=== PATIENT | female | born 1940 | race Caucasian/White ===

== ENCOUNTER → 2020-02-22 12:50 | Outpatient (CLI) | payer MEDICARE, SELFPAY ==
[2020-01-10 11:18] VITALS: BMI 32.8
--- NOTE | 2020-02-22 12:53 | ECHOD_ITS ---
Reason For Study: MURMUR Procedure This was a 2D Doppler, Color Flow transthoracic echocardiogram. Exam performed in department. Left Ventricle Normal LV size. Left ventricular systolic function is normal. The estimated ejection fraction is 55 %. There is evidence of diastolic dysfunction. No regional wall motion abnormalities noted. Right Ventricle Normal RV size. Normal systolic function. Atria The left atrium is mildly enlarged. Normal right atrium. No doppler evidence for ASD. Mitral Valve There is mild to moderate mitral annular calcification. Extension of the mitral annular calcification onto the mitral valve leaflets. The mitral valve chordae are thickened and/or calcified. Trivial mitral valve insufficiency. Tricuspid Valve Normal tricuspid valve. Mild tricuspid valve insufficiency. Right ventricular systolic pressure estimated to be 37 mmHg. Aortic Valve Trisinus/trileaflet aortic valve. Mild focal aortic valve calcification. Mild (1+) aortic valve insufficiency. Pulmonic Valve The pulmonic valve is not well visualized. Trivial pulmonic valve insufficiency. Great Vessels Mildly dilated aortic root. Pericardium/Pleural No pericardial effusion. MMode/2D Measurements & Calculations LVIDd: 4.9 cm IVSd: 0.89 cm LVOT diam: 2.1 cm LVIDs: 3.5 cm LVPWd: 1.0 cm LVOT area: 3.3 cm2 RVDd: 3.2 cm FS: 28.0 % Ao root diam: 4.2 cm LAV(MOD-bp): 82.3 ml LA A4 area: 25.1 cm2 LAV(MOD-bp) Indexed: 42.9 ml/m2 LAV(MOD-sp2): 80.8 ml LAV(MOD-sp4): 80.2 ml LA dimension(2D): 3.3 cm RA A4 area: 19.0 cm2 Time Measurements MV dec time: 0.27 sec Doppler Measurements & Calculations MV E max willem: 98.6 cm/sec Lat Peak E' Willem: 5.3 cm/sec Med Peak E' Willem: 5.1 cm/sec MV A max willem: 116.3 cm/sec E/E' lat: 18.5 E/E' med: 19.4 MV E/A: 0.85 Ao V2 max: 126.3 cm/sec AI max willem: 454.3 cm/sec LV V1 max: 93.3 cm/sec Ao max P.4 mmHg AI max P.6 mmHg LV V1 max P.5 mmHg Ao V2 mean: 92.9 cm/sec AI dec slope: 275.1 cm/sec2 LV V1 mean P.9 mmHg Ao mean P.8 mmHg AI P1/2t: 483.8 msec LV V1 mean: 67.2 cm/sec Ao V2 VTI: 34.8 cm LV V1 VTI: 24.8 cm GREGORIA(I,D): 2.4 cm2 GREGORIA(V,D): 2.5 cm2 SV(LVOT): 82.3 ml PA V2 max: 91.6 cm/sec TR max willem: 289.9 cm/sec TR max P.6 mmHg Interpretation Summary Left ventricular systolic function is normal. The estimated ejection fraction is 55 %. The left atrium is mildly enlarged. There is mild to moderate mitral annular calcification. Extension of the mitral annular calcification onto the mitral valve leaflets. The mitral valve chordae are thickened and/or calcified. Trivial mitral valve insufficiency. Mild tricuspid valve insufficiency. Mild focal aortic valve calcification. Mild (1+) aortic valve insufficiency. Trivial pulmonic valve insufficiency. Right ventricular systolic pressure estimated to be 37 mmHg. There is evidence of diastolic dysfunction. Ordering Physician: Sina Warner Referring Physician: Jared Rosenbaum Performed By: Kristine Patel, RDCS, RVT
--- NOTE | 2020-02-22 14:40 | RAD_ITS ---
STUDY: X-RAY CHEST REASON FOR EXAM: Female, 79 years old. AMIODARONE THERAPY, HX OF MURMUR AND CAD TECHNIQUE: PA and lateral views of the chest. COMPARISON: 01/16/2016. FINDINGS: The lungs are normally expanded. There is nonspecific mild interstitial prominence throughout the lung bases. There is increased lucency through the bilateral mid upper lung caicedo, cannot exclude COPD. There is no demonstrated pleural abnormality. Normal size heart. Normal mediastinum and devante. Normal visualized pulmonary arteries. There is atherosclerotic calcification of the aortic arch with tortuosity. There is demineralization of the osseous structures. There is degenerative osteoarthritis of the bilateral shoulders. There is a large hiatal hernia. RAD/Chest PA and Lateral IMPRESSION: Findings suggestive of COPD/edema otherwise no acute cardiopulmonary disease. Large hiatal hernia. Electronically Signed: Pauline Scruggs MD at 0:18 EDT , Service support ,
--- NOTE | 2020-02-23 08:43 | PFT ---
INTRODUCTION: The patient is an 79-year-old female that presents for pulmonary function studies secondary to a diagnosis of high risk medication use. Respiratory therapy reports good patient effort. Bronchodilators were used during testing. INTERPRETATION: Forced expiration spirometry demonstrates no evidence of a large airways obstructive ventilatory defect. There was a significant response to aerosolized bronchodilators, based upon change noted in both FEV1 and FVC. Spirograms are of good quality and plateau normally. Body plethysmography revealed an elevated RV to 135% of predicted, which could be indicative of underlying air trapping. Diffusing capacity by single breath CO was at the lower limits of normal. When compared to previous pulmonary function studies from December 2016 there have been symmetric reductions in both FVC and FEV1 by approximately 20%. IMPRESSION: Subtle stigmata of small airways disease with significant bronchodilator response. There has been an approximate 20% reduction in FEV1 since December 2016.
== END ==
PROVIDERS: PCP Family Medicine; Referring Provider Internal Medicine Cardiovascular Disease; Visit Provider Internal Medicine Cardiovascular Disease
DX: I48.0 Paroxysmal atrial fibrillation (principal); I25.10 Atherosclerotic heart disease of native coronary artery without angina pectoris; I35.1 Nonrheumatic aortic (valve) insufficiency; E78.5 Hyperlipidemia, unspecified; I10 Essential (primary) hypertension; Z79.899 Other long term (current) drug therapy
CPT/HCPCS: 71046; 93306; 94060; 94726; 94729

== ENCOUNTER → 2021-05-27 08:18 | Outpatient (CLI) | payer MEDICARE, SELFPAY ==
[2021-05-22 09:46] VITALS: BMI 31.6
[2021-05-27 10:16] LABS: AST(SGOT) 14 U/L (15-37); Alanine Aminotransfer ALT/SGPT 20 U/L (13-56); Albumin, Serum 3.6 g/dL (3.2-5.0); Alkaline Phosphatase 85 U/L (45-117); Anion Gap 6 (5-15); BUN 27 mg/dL (7-18); Bilirubin, Direct 0.21 mg/dL (0.00-0.30); Calcium,Total 8.8 mg/dL (8.5-10.1); Chloride 108 mmol/L (98-107); Creatinine, Serum 1.23 mg/dL (0.55-1.02); EST Glomerular Filtration Rate 44 mL/min (>60); Est Glom Filt Rate - Afr Amer 54 mL/min (>60); Globulin 3.5 g/dL (2.2-4.2); Glucose 66 mg/dL (74-106); Potassium 4.4 mmol/L (3.5-5.1); Protein, Total 7.1 g/dL (6.4-8.2); Sodium Level 141 mmol/L (136-145); T4 Total, Thyroxin 14.7 ug/dL (4.8-13.9); Thyroid Stim Hormone (TSH) 0.22 uIU/mL (0.358-3.74)
== END ==
PROVIDERS: PCP Family Medicine; Referring Provider Family Medicine; Visit Provider Internal Medicine Cardiovascular Disease
DX: I25.10 Atherosclerotic heart disease of native coronary artery without angina pectoris (principal); E78.5 Hyperlipidemia, unspecified; E03.9 Hypothyroidism, unspecified; I48.0 Paroxysmal atrial fibrillation; Z79.899 Other long term (current) drug therapy; R79.9 Abnormal finding of blood chemistry, unspecified
CPT/HCPCS: 36415; 80048; 80076; 84436; 84443

== ENCOUNTER → 2021-06-23 08:57 | Outpatient (CLI) | payer MEDICARE, SELFPAY ==
[2021-05-22 09:46] VITALS: BMI 31.6
--- NOTE | 2021-06-23 09:08 | RAD_ITS ---
PROCEDURE: Fluoroscopic guided Hip Injection DATE: 06/23/2021. INDICATION: Female, 80 years old. Chronic right hip pain. PHYSICIAN: Gerry Barraza M.D. MEDICATIONS: 40 mg of the KENALOG and 3 cc of 0.5% MARCAINE. 2% Lidocaine administered subcutaneously for local anesthesia. ACCESS SITE: Right hip. . NEEDLE: 22-gauge spinal needle. FLUOROSCOPY TIME (if supplied): (0:38) minutes/seconds. One image was obtained. FINDINGS: The risks, benefits, and alternatives to the procedure were explained to the patient. The specific risks of bleeding, infection, and neurovascular injury were detailed and accepted. Witnessed informed consent was obtained. A 22-gauge spinal needle was positioned under radiographic fluoroscopic localization. Approximately 2 cc of ISOVUE-300 instilled for localization purposes. Medication was then injected. The patient tolerated the procedure well without any immediate complications. RAD/Inj/Asp Delvis Jt Should/Hip/Knee IMPRESSION: 1. Successful fluoroscopic guided hip injection. Electronically Signed: Gerry Barraza MD at 10:21 EDT , Service support ,
[2021-06-23] MEDS: Lidocaine 2% (5ml sdv) 5 ML VIAL.MPF INFILT (09:30)
[2021-06-23] MEDS: Triamcinolone Acetonide 40 MG/ML Vial INTRAARTIC (09:30)
[2021-06-23] MEDS: Bupivacaine 0.5% PF 10 ML VIAL INTRAARTIC (09:30)
== END ==
PROVIDERS: PCP Family Medicine; Referring Provider Orthopaedic Surgery; Visit Provider Orthopaedic Surgery
DX: M16.11 Unilateral primary osteoarthritis, right hip (principal); M25.551 Pain in right hip
CPT/HCPCS: 20610; 77002; Q9967

== ENCOUNTER → 2021-07-07 08:22 | Outpatient (CLI) | payer MEDICARE, SELFPAY ==
[2021-07-07 09:34] LABS: T4 Total, Thyroxin 13.6 ug/dL (4.8-13.9); Thyroid Stim Hormone (TSH) 0.42 uIU/mL (0.358-3.74)
== END ==
PROVIDERS: PCP Family Medicine; Referring Provider Internal Medicine Cardiovascular Disease; Visit Provider Internal Medicine Cardiovascular Disease
DX: I48.0 Paroxysmal atrial fibrillation (principal); Z79.899 Other long term (current) drug therapy
CPT/HCPCS: 36415; 84436; 84443

== ENCOUNTER → 2021-08-19 10:36 | Outpatient (CLI) | payer MEDICARE, SELFPAY ==
[2021-05-22 09:46] VITALS: BMI 31.6
--- NOTE | 2021-08-19 11:35 | RAD_ITS ---
EXAM: XR CHEST, 2 VIEWS : 1940 CLINICAL INDICATION: amiodarone therapy TECHNIQUE: Frontal and lateral views of the chest. This report was created using [employer] report generation technology. COMPARISON: 02/22/2020 FINDINGS: LUNGS AND PLEURAL SPACES: Unremarkable. No consolidation or edema. No pneumothorax. No effusion. HEART: Cardiac silhouette is enlarged in size. MEDIASTINUM: There is a large hiatal hernia present. BONES/JOINTS: Unremarkable. SOFT TISSUES: Unremarkable. RAD/Chest PA and Lateral IMPRESSION: Is stable cardiomegaly. There is a stable large hiatal hernia. There is no acute pulmonary abnormality. at 0313 Reported and signed by: Fredo Brannon MD Electronically Signed: Fredo Brannon MD at 3:12 EDT Tel , Service support ,
--- NOTE | 2021-08-21 07:45 | PFT ---
INTRODUCTION: The patient is an 81-year-old female that presents for pulmonary function studies secondary to a diagnosis of atrial fibrillation. Respiratory therapy reported good patient effort. Bronchodilators were used during testing. INTERPRETATION: Forced expiration spirometry demonstrates no evidence of a large airways obstructive ventilatory defect. There was stigmata of small airways disease with significant bronchodilator response noted. Spirograms are of good quality and plateau gradually indicating slow emptying of the lungs. Body plethysmography was performed and revealed an elevated RV to 136% of predicted, indicative of underlying air trapping. Diffusing capacity by single breath CO is mildly reduced to 68% of predicted. There is overall stability in the patient's PFTs when compared to prior testing completed in January 2020. IMPRESSION: Stigmata of small airways disease with significant bronchodilator response and evidence of air trapping. PFTs are stable when compared to prior testing in January 2020.
== END ==
PROVIDERS: PCP Family Medicine; Referring Provider Internal Medicine Cardiovascular Disease; Visit Provider Internal Medicine Cardiovascular Disease
DX: I48.0 Paroxysmal atrial fibrillation (principal); Z79.899 Other long term (current) drug therapy
CPT/HCPCS: 71046; 94060; 94726; 94729

== ENCOUNTER 2022-04-11 16:36 | Emergency (ER) | payer MEDICARE, SELFPAY ==
[2022-04-11 16:37] VITALS: BP 214/80; PULSE 65; RESP 18; TEMP 36.6; O2SAT 94; BMI 32.2
--- NOTE | 2022-04-11 16:58 | RAD_ITS ---
STUDY: X-RAY - RIGHT RADIUS AND ULNA REASON FOR EXAM: Female, 81 years old. fall TECHNIQUE: 2 view(s) of the forearm. COMPARISON: None. FINDINGS: Diffuse soft tissue swelling is noted.. Arterial calcification noted Normal visualized radius. Normal visualized ulna. RAD/Forearm 2 Views IMPRESSION: No evidence for acute fracture. Electronically Signed: Jose Mclaughlin MD at 18:07 EDT ,
[2022-04-11] MEDS: Acetaminophen 500 MG Tablet 1000 MG PO (17:00)
--- NOTE | 2022-04-11 17:07 | RAD_ITS ---
STUDY: X-RAY - RIGHT ELBOW REASON FOR EXAM: Female, 81 years old. fall TECHNIQUE: 3 view(s) of the elbow. COMPARISON: None. FINDINGS: Normal visualized humerus, radius and ulna. Normal radiocapitellar and ulnotrochlear articulations. Diffuse arterial calcification noted. RAD/Elbow min 3 Views IMPRESSION: No acute fracture or dislocation Electronically Signed: Jose Mclaughlin MD at 18:06 EDT ,
--- NOTE | 2022-04-11 17:08 | EX.ED.DYSGE1 ---
HPI <JENAE Boles - Last Filed: 04/11/22 17:38> History of Present Illness Chief Complaint: Fall Narrative Narrative: 81-year-old female lives in a [facility] home presents to the emergency department after a fall, right arm pain. Patient states she was walking outside, her left leg gave out she fell forward on her right side injuring her right arm as well as her right head. Patient is currently not on any anticoagulation medicine. Patient is complaining pain to the elbow, forearm. Patient also has bruising to the right orbital area. Patient denies any LOC. 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 intermediate teacher current use of amiodarone Microcytic anemia Nonrheumatic aortic (valve) insufficiency Other [facility] (current) drug therapy Paroxysmal atrial fibrillation Type 2 diabetes mellitus Home Medications bimatoprost 1 drp OPHTHALMIC QHS 09/04/13 [History Last Taken 09/03/13] cholecalciferol (vitamin D3) 1,000 unit PO DAILY 09/04/13 [History Last Taken Unknown] aspirin 81 mg PO DAILY@0800 #30 tab.chew 09/06/13 [Rx Last Taken Unknown] famotidine 40 mg tablet 40 mg PO QDAY tab 01/12/18 [History Last Taken Unknown] atorvastatin 20 mg tablet 20 mg PO QDAY 01/17/18 [History Last Taken Unknown] glipizide 5 mg tablet 5 mg PO BID tab 01/17/18 [History Last Taken Unknown] labetalol 300 mg tablet 300 mg PO BID 01/17/18 [History Last Taken Unknown] insulin detemir U-100 100 unit/mL (3 mL) subcutaneous pen 30 unit SC QHS ml 07/04/20 [History Last Taken Unknown] losartan 50 mg tablet 50 mg PO BID #180 tab 01/14/21 [Rx Last Taken Unknown] hydrochlorothiazide 25 mg tablet 12.5 mg PO QDAY tab 05/22/21 [History Last Taken Unknown] amiodarone 200 mg tablet 100 mg PO QDAY #45 tab 11/17/21 [Rx Last Taken Unknown] levothyroxine 137 mcg tablet 137 mcg PO DAILY 12/01/21 [History Last Taken Unknown] amlodipine 5 mg tablet 5 mg PO DAILY #90 tab 12/28/21 [Rx Last Taken Unknown] Allergy/AdvReac Type Severity Reaction Status Date / Time lansoprazole [From Prevacid] Allergy Itching Verified 12/01/21 14:07 lisinopril [From Zestril] Allergy Other Verified 12/01/21 14:07 sulfamethoxazole Allergy Chest Verified 12/01/21 14:07 [From Bactrim] tightness trimethoprim Allergy Other Verified 12/01/21 14:07 nifedipine [From Procardia] AdvReac Other Verified 12/01/21 14:07 rosiglitazone maleate AdvReac Other Verified 12/01/21 14:07 [From Avandia] Family History Mother Heart disease Hypertension Cancer skin Father Cancer throat Brother Heart disease Hypertension Sister Heart disease heart valve problems Surgical History History of left heart catheterization (~09/05/13) History of partial thyroidectomy History of tubal ligation Social History Smoking Status: Never smoker second hand exposure: Yes alcohol intake: never caffeine: Yes Type: coffee Number of servings: 2 ROS <JENAE Boles - Last Filed: 04/11/22 17:38> [facility] ROS Narrative Constitutional: Negative for fever, chills, weight loss, weakness Eyes: Negative for vision loss, vision change, double vision ENT: Negative for any sore throat, ear pain, congestion Cardiovascular: Negative for any chest pain, tightness, palpitations Respiratory: Negative for any cough, sputum production, hemoptysis, dyspnea, dyspnea on exertion, orthopnea Gastrointestinal: Negative for any abdominal pain, nausea, vomiting, diarrhea, constipation, blood in stool, blood in vomit : Negative for any urinary frequency, dysuria, retention, blood in urine Muscle skeletal: Negative for any muscle joint pain, stiffness, myalgias, arthralgias, neck pain, back pain. Positive for right arm pain, right elbow, right forearm Neurological: Negative for any headache, syncope, numbness or tingling, dizziness Skin: Negative for any rashes, lumps, itching, abrasions, lacerations Psychiatric: Negative for any depression, anxiety, stress, suicidal ideation, homicidal ideation Hematologic: Negative for any easy bruising, excessive bruising, easy bleeding Allergies: Negative for any eczema, hives, rash EXAM <JENAE Boles - Last Filed: 04/11/22 17:38> Physical Exam Narrative Exam Narrative: Vital signs reviewed. HEET: Head normocephalic atraumatic, TMs clear bilaterally. Posterior pharynx is clear, moist mucous membranes. Nares clear bilaterally. Patient does have some ecchymosis, edema to the lateral aspect of the right orbit. Negative for any abrasion, laceration. Pupils are equal round reactive to light. Negative for any hematoma, septal hematoma. Neck: Supple with no lymphadenopathy or tenderness. No signs of meningismus, negative jolt sign. Cardiac: Regular rate and rhythm no murmurs gallops or rubs, equal peripheral pulses bilaterally. Respiratory: Lungs clear to auscultation bilaterally. No chest tenderness. Abdomen: Soft, nontender, nondistended. No abdominal bruit or pulsatile masses. No hepatosplenomegaly Extremities: No peripheral edema, no signs of gross trauma or deformity. Active full range of motion of all extremities. Patient is full range of motion of the elbow, right shoulder. Patient does have pain on palpation of the right elbow is rather right forearm. Negative for neurological focal deficits. +2 radial pulse Neuro: Cranial nerves II through XII intact, no focal neurological deficits. Skin: Clean dry and intact with no rash, purpura, petechiae, vesicles or pustules. Backs/flank: No CVA tenderness, no midline spinal tenderness, no deformity. Psych: Normal mood and affect. No SI, HI or acute psychosis. Const Vital Signs: 04/11/22 16:37 Temperature 97.8 F Temperature Source Oral Pulse Rate 65 Respiratory Rate 18 Blood Pressure 214/80 H Blood Pressure Mean 124 Pulse Ox 94 Oxygen Delivery Method Room Air Positive well nourished and well developed General Appearance ED: well developed <Dr. Rah Madrid MD - Last Filed: 04/11/22 17:38> Physical Exam Const Vital Signs: 04/11/22 16:37 Temperature 97.8 F Temperature Source Oral Pulse Rate 65 Respiratory Rate 18 Blood Pressure 214/80 H Blood Pressure Mean 124 Pulse Ox 94 Oxygen Delivery Method Room Air [facility] <JENAE Boles - Last Filed: 04/11/22 17:38> [facility] Narrative Medical decision making narrative: RightPatient appears well, patient appears nontoxic, vital signs stable. Patient presents the emergency department with mechanical fall landing on her right arm. Patient had worsening pain to the right forearm, right elbow and is here for evaluation. She did receive x-rays of both the right forearm, 3 views of the elbow, these were read by ER attending, they were negative for any acute osseous abnormality. Patient be diagnosed with a fall, right arm contusion. Closed head injury. Patient instructed to ice and elevate the right arm. Also to place ice on her head. Patient is agreeable with the plan. She is instructed return for any worsening symptoms, she will follow-up closely with her PCP. Stable for discharge Lab Data Attestation: I reviewed the patient's lab results. <Dr. Rah Madrid MD - Last Filed: 04/11/22 17:38> [facility] Narrative Medical decision making narrative: I have personally performed a face to face assessment of the patient and have reviewed the ELISHA Note. I performed a substantive portion of the visit including all aspects of the following. My lundberg findings include: History is [evaluate this patient with the nurse practitioner. 81-year-old female fell injuring her right elbow and proximal forearm. No LOC. Minor head injury. Not on blood thinners. Denies other complaints.] Exam is [81-year-old female no acute distress. Vital signs stable afebrile. H EENT exam mild contusion right forehead. Pupils are reactive light. Nose no hematoma. Scalp nontender. Neck nontender. Lungs clear to auscultation. Heart regular rhythm no murmur. Chest wall nontender. Abdomen soft nontender. Pelvic girdle intact. She complains of discomfort there right elbow proximal forearm. There is no deformity there is really no reproducible pain. She can do full flexion-extension the elbow supination and pronation. Right wrist, hand and shoulder are nontender with normal information coder strength. Neurologically she is awake and alert.] Medical Decision Making [older female fall x-ray of the right elbow and right forearm interpreted by myself shows no acute abnormality. No fracture. No dislocation.] Other additions or changes: [Discharged to home.] Radiography Diagnostic Testing: Right elbow x-ray 3 views interpreted by myself shows no acute abnormality. No fracture no dislocation. Right forearm x-ray 2 view interpreted myself shows no acute abnormality. No fracture or dislocation. Discharge Plan Triage Chief Complaint: Fall ED Midlevel Provider: Sina Sanchez ED Provider: Rah Madrid Dx/Rx/DC Orders Clinical Impression: Contusion of elbow and forearm, CHI (closed head injury) Instructions: After a Concussion, ED Contusion, Upper Extremity Prescriptions: No Action famotidine 40 mg tablet 40 mg PO QDAY RF: 0 atorvastatin 20 mg tablet 20 mg PO QDAY RF: 0 labetalol 300 mg tablet 300 mg PO BID RF: 0 glipizide 5 mg tablet 5 mg PO BID RF: 0 hydrochlorothiazide 25 mg tablet 12.5 mg PO QDAY RF: 0 levothyroxine 137 mcg tablet 137 mcg PO DAILY RF: 0 cholecalciferol (vitamin D3) 1,000 UNIT capsule 1,000 unit PO DAILY RF: 0 bimatoprost 1 DROP bottle 1 drp OPHTHALMIC QHS RF: 0 aspirin 81 MG tablet,chewable 81 mg PO DAILY@0800 Qty: 30 RF: 0 insulin detemir U-100 100 unit/mL (3 mL) insulin pen 30 unit SC QHS RF: 0 losartan 50 mg tablet 50 mg PO BID Qty: 180 RF: 4 amiodarone 200 mg tablet 100 mg PO QDAY Qty: 45 RF: 3 amlodipine 5 mg tablet 5 mg PO DAILY Qty: 90 RF: 3 Primary Care Provider: Jared Rosenbaum Referrals: Jared Rosenbaum MD [Primary Care Provider] - Activity Restrictions/Additional Instructions: Please ice, elevate the right arm. Please place ice on your face where you struck the ground. Please return for any worsening symptoms Print Language: Occitan Disposition Disposition: Home, Self Care
[2022-04-11 17:55] VITALS: BP 191/71; PULSE 65; RESP 18
== END 2022-04-11 18:04 | disposition home or self-care (01) ==
PROVIDERS: Emergency Provider Emergency Medicine; PCP Family Medicine; Visit Provider Emergency Medicine
DX: S50.01XA Contusion of right elbow, initial encounter (principal); I48.0 Paroxysmal atrial fibrillation; E11.9 Type 2 diabetes mellitus without complications; Z79.4 Long term (current) use of insulin; S50.11XA Contusion of right forearm, initial encounter; Y93.01 Activity, walking, marching and hiking; W19.XXXA Unspecified fall, initial encounter; I25.10 Atherosclerotic heart disease of native coronary artery without angina pectoris; I10 Essential (primary) hypertension; E78.5 Hyperlipidemia, unspecified; E03.9 Hypothyroidism, unspecified; D50.9 Iron deficiency anemia, unspecified; I35.1 Nonrheumatic aortic (valve) insufficiency; Z79.82 Long term (current) use of aspirin; Z79.899 Other long term (current) drug therapy; S00.11XA Contusion of right eyelid and periocular area, initial encounter
CPT/HCPCS: 73080; 73090; 99283

== ENCOUNTER → 2022-06-14 | Outpatient (CLI) | payer MEDICARE, SELFPAY ==
--- NOTE | 2022-06-14 13:56 | CT_ITS ---
STUDY: CT RIGHT ELBOW WITHOUT CONTRAST REASON FOR EXAM: Proximal radial fracture, right elbow injury in March. TECHNIQUE: Transaxial CT imaging of the elbow was performed. Sagittal and coronal images were reconstructed. Individualized dose optimization techniques were used for this CT. COMPARISON: Radiographs 04/11/2022. FINDINGS: There is a minimally impacted fracture of the radial neck with a radiolucency in the radial neck measuring approximately 1.5 cm in length (sagittal reconstructions 22-25; coronal reconstructions 16-18). Normal radiocapitellar and ulnotrochlear articulations. There is vascular calcification. CT/Extremity Upper without Contra IMPRESSION: Radial neck fracture through a radiolucency of the proximal radius, possibly representing a pathologic fracture. Electronically Signed: Cristobal Garcia MD at 10:09 EDT ,
== END | disposition home or self-care (01) ==
LOC: CT 13:54
PROVIDERS: PCP Family Medicine; Referring Provider Specialist; Visit Provider Specialist
DX: S52.131 Displaced fracture of neck of right radius (principal)
CPT/HCPCS: 73200

== ENCOUNTER 2022-09-21 12:23 | Outpatient (CLI) | payer MEDICARE, SELFPAY ==
--- NOTE | 2022-09-21 18:19 | PFTCOMP ---
COMPLETE PULMONARY FUNCTION TEST INTERPRETATION Brief HPI: Patient is an 82-year-old female, currently under the care of Rudy Feng, who presents to [facility] for complete pulmonary function tests secondary to diagnosis of high risk med use. Respiratory therapist reports good effort and reproducible results. Interpretation: Forced expiration spirometry shows a mild large airways obstructive ventilatory defect with an FEV1 of 84% predicted. There is no significant bronchodilator response by strict ATS criteria. Spirograms are of good quality and plateau slowly, indicating slowly emptying areas of the lungs. The respiratory flow volume loop shows decreased expiratory flow rates at high lung volumes consistent with small airways obstruction. Lung volumes by body plethysmography show a normal total lung capacity at 5.48 L, 117% predicted. FRC and RV are elevated out of proportion. Lung volume measurements are consistent with hyperinflation and air-trapping. Diffusion capacity by carbon monoxide is decreased at 60% predicted. The airway resistance is slightly elevated. Compared to previous pulmonary function tests from 08/19/2021, there has been a reduction in DLCO by 13%. Impression: Irreversible mild large airways obstructive ventilatory defect resulting in air trapping with hyperinflation and a reduction in diffusing capacity. Patient likely does not need to discontinue high risk med, but repeat testing would be advised in the future.
== END 2022-09-21 23:59 | disposition home or self-care (01) ==
LOC: PSN 12:24
PROVIDERS: PCP Family Medicine; Referring Provider Nurse Practitioner Family; Visit Provider Nurse Practitioner Family
DX: Z79.899 Other long term (current) drug therapy (principal)
CPT/HCPCS: 94060; 94726; 94729

== ENCOUNTER → 2023-01-19 | Outpatient (CLI) | payer MEDICARE, SELFPAY ==
--- NOTE | 2023-01-19 08:24 | RAD_ITS ---
INDICATION: amiodarone therapy EXAMINATION/TECHNIQUE: X-RAY - XR Chest 2 Views COMPARISON: 08/19/2021. FINDINGS: LINES/DEVICES: None. LUNGS: No consolidation, edema or effusion. Chronic blunting of the right costophrenic angle. No pneumothorax. MEDIASTINUM AND CARDIOVASCULAR STRUCTURES: Cardiac silhouette not enlarged. Central airways are unremarkable. Large hiatal hernia without significant change from prior. BONES AND SOFT TISSUES: Unremarkable. RAD/Chest PA and Lateral IMPRESSION: No acute cardiopulmonary disease. Electronically Signed: Karla Corral MD at 20:41 EDT Reading Location ID and State: [id number] / Tel , Service support ,
--- NOTE | 2023-01-19 08:24 | ECHOD_ITS ---
Reason For Study: Afib Procedure This was a 2D Doppler, Color Flow transthoracic echocardiogram. The study was technically difficult. Exam performed in department. Left Ventricle Normal size and thickness. The left ventricular ejection fraction is 60 %. Stage 2 diastolic dysfunction. Right Ventricle Normal right ventricle. Atria The left atrium is moderately enlarged. Normal right atrium. Mitral Valve Moderate diffuse mitral valve calcification. Trivial mitral valve insufficiency. Tricuspid Valve Mild to moderate (1-2+) tricuspid valve insufficiency. Pulmonary artery systolic pressure is 41 mmHg. Mild pulmonary hypertension. Aortic Valve Trisinus/trileaflet aortic valve. Moderate (2+) aortic valve insufficiency. Pulmonic Valve The pulmonic valve is not well visualized. Great Vessels Calcified aortic root. Pericardium/Pleural No pericardial effusion. MMode/2D Measurements & Calculations LVIDd: 4.9 cm IVSd: 1.1 cm Ao root diam: 4.0 cm LVIDs: 3.6 cm LVPWd: 0.87 cm LA dimension: 3.3 cm RVDd: 4.1 cm FS: 25.5 % LAV(MOD-bp): 92.4 ml LA A4 area: 25.4 cm2 RA A4 area: 18.3 cm2 LAV(MOD-bp) Indexed: 48.2 ml/m2 LAV(MOD-sp2): 89.9 ml LAV(MOD-sp4): 85.0 ml Time Measurements MV dec time: 0.21 sec Doppler Measurements & Calculations MV E max willem: 90.6 cm/sec Lat Peak E' Willem: 4.4 cm/sec Med Peak E' Willem: 5.8 cm/sec MV A max willem: 127.4 cm/sec E/E' lat: 20.5 E/E' med: 15.6 MV E/A: 0.71 MV V2 max: 160.2 cm/sec MV P1/2t max willem: 113.2 cm/sec Ao V2 max: 120.7 cm/sec MV max P.3 mmHg MV P1/2t: 78.0 msec Ao max P.8 mmHg MV V2 mean: 84.5 cm/sec MV dec slope: 425.4 cm/sec2 MV mean P.4 mmHg MVA(P1/2t): 2.8 cm2 MV V2 VTI: 43.4 cm AI max willem: 498.1 cm/sec LV V1 max: 82.2 cm/sec PA V2 max: 98.1 cm/sec AI max P.3 mmHg LV V1 max P.7 mmHg AI dec slope: 375.6 cm/sec2 AI P1/2t: 388.4 msec PI dec slope: 155.6 cm/sec2 TR max willem: 298.1 cm/sec TR max P.5 mmHg ECHO/Echo Complete Interpretation Summary The left ventricular ejection fraction is 60 %. Stage 2 diastolic dysfunction. The left atrium is moderately enlarged. Moderate diffuse mitral valve calcification. Mild pulmonary hypertension. Moderate (2+) aortic valve insufficiency. Calcified aortic root. Ordering Physician: Sina Warner Referring Physician: Jared Rosenbaum Performed By: Arnie Mariscal RCS
[2023-01-19 09:21] LABS: AST(SGOT) 10 U/L (15-37); Alanine Aminotransfer ALT/SGPT 17 U/L (13-56); Albumin, Serum 3.6 g/dL (3.2-5.0); Alkaline Phosphatase 96 U/L (45-117); Anion Gap 8 (5-15); BUN 27 mg/dL (7-18); BUN/Creat Ratio 18.8 RATIO (10-20); Bilirubin, Direct 0.24 mg/dL (0.00-0.30); Calcium,Total 9.1 mg/dL (8.5-10.1); Chloride 105 mmol/L (98-107); Cholesterol 141 mg/dL (200); Creatinine, Serum 1.44 mg/dL (0.55-1.02); EST Glomerular Filtration Rate 37 mL/min (>60); Est Glom Filt Rate - Afr Amer 45 mL/min (>60); Globulin 3.7 g/dL (2.2-4.2); Glucose 134 mg/dL (74-106); High Density Lipoprotein 52 mg/dL; Potassium 4.1 mmol/L (3.5-5.1); Protein, Total 7.3 g/dL (6.4-8.2); Sodium Level 139 mmol/L (136-145); T4 Total, Thyroxin 11.9 ug/dL (4.8-13.9); Theophylline (Aminophylline) < 2.0 ug/mL (10.0-20.0); Triglycerides 137 mg/dL; Very Low Density Lipoprotein 27 mg/dL (5-40)
== END | disposition home or self-care (01) ==
LOC: CVS 08:20
PROVIDERS: PCP Family Medicine; Referring Provider Internal Medicine Cardiovascular Disease; Visit Provider Internal Medicine Cardiovascular Disease
DX: I25.10 Atherosclerotic heart disease of native coronary artery without angina pectoris (principal); I48.0 Paroxysmal atrial fibrillation; Z79.899 Other long term (current) drug therapy; I10 Essential (primary) hypertension; I35.1 Nonrheumatic aortic (valve) insufficiency; E78.5 Hyperlipidemia, unspecified; R60.9 Edema, unspecified
CPT/HCPCS: 36415; 71046; 80048; 80061; 80076; 80198; 84436; 93306

== ENCOUNTER 2024-01-16 01:39 | Emergency (ER) | payer MEDICARE, SELFPAY ==
[2024-01-16 01:50] VITALS: BP 184/67; PULSE 60; RESP 18; TEMP 36.6; O2SAT 96; BMI 31.7
[2024-01-16 02:02] VITALS: BP 164/66; PULSE 59; RESP 18; O2SAT 99
[2024-01-16 02:14] LABS: Absolute Lymphocyte Count 1.04 X10^3/uL (0.83-4.51); Absolute Neutrophil Count 7.3 X10^3/uL (2.0-7.7); Basophil# 0.09 X10^3/uL; Basophil% 0.9 % (0-1); Eosinophil# 0.15 X10^3/uL; Eosinophils% 1.6 % (0-5); Hematocrit 39.1 % (37-47); Hemoglobin 12.2 g/dL (12.0-15.0); Lymphocyte # 1.04 X10^3/ul (0.83-4.51); Mean Corp Hgb Conc 31.2 g/dL (32-36); Mean Corpuscular Hgb 29.4 pg (27.0-32.0); Mean Corpuscular Volume 94.2 fL (81-99); Mean Platelet Vol. 9.5 fl (6.2-12.0); Monocyte# 0.85 X10^3/uL; NRBC Flagged by Analyzer 0 % (0-5); Neutrophil # 7.29 X10^3/uL (2.7-7.7); Neutrophil % 76.9 % (47-70); Platelet Count 263 K/mm3 (150-450); RBC Distribution Width SD 47.9 fl (35.1-43.9); Red Blood Count 4.15 M/mm3 (4.2-5.4); White Blood Count 9.5 K/mm3 (4.4-11.0)
[2024-01-16 02:18] LABS: Mucous, Urine 0 SEEN /hpf (<or=2+); Red Blood Cells-Urine 0 SEEN /hpf (0-5); Squamous Epithelial Cells - UA 0 SEEN /hpf (5-10)
[2024-01-16 02:42] LABS: Color, Urine Yellow (Yellow); Glucose, Dipstick 250 mg/dl (Normal); Ketone-Dipstick Negative (Negative); Leukocyte Esterase-Dipstick 500 /ul (Negative); Nitrite-Dipstick Positive (Negative); Occult Blood-Urine 250 /ul (Negative); Protein-Dipstick 100 mg/dl (Negative); Specific Gravity, Urine 1.015 (1.002-1.030); Urine Bilirubin Dipstick Negative (Negative); Urine Clarity Sl. Cloudy (Clear); Urine Urobilinogen Normal (Normal)
[2024-01-16 02:48] LABS: Bacteria 4+ /hpf (None Seen); White Blood Cells 5-10 SEEN /hpf (0-5)
[2024-01-16 02:52] LABS: Anion Gap 7 (5-15); BUN 27 mg/dL (7-18); BUN/Creat Ratio 21.4 RATIO (10-20); Calcium,Total 8.9 mg/dL (8.5-10.1); Chloride 106 mmol/L (98-107); Creatinine, Serum 1.26 mg/dL (0.55-1.02); EST Glomerular Filtration Rate 43 mL/min (>60); Est Glom Filt Rate - Afr Amer 52 mL/min (>60); Estimated Creatinine Clearance 34.21 ml/min; Glucose 274 mg/dL (74-106); Potassium 3.9 mmol/L (3.5-5.1); Sodium Level 138 mmol/L (136-145)
[2024-01-16 03:58] VITALS: BP 162/66; PULSE 61; RESP 16; O2SAT 98
--- NOTE | 2024-01-16 04:02 | EDS_ITS ---
HPI History of Present Illness Chief Complaint: GI Bleed Detail of Chief Complaint: Right red blood after attempted disimpaction and elevated blood sugar Informant: patient and EMS Onset/Context/Timing Onset: Today Context: Sudden Onset Timing: Intermittent Quality: Patient reports her rectum is not closed. She is feeling discomfort in the Location: Rectum and Current Severity: Mild Maximum Severity: Moderate Worsened by: When patient attempted to disimpact herself Relieved by: Unsuccessful Associated Symptoms Associated Symptoms: Frequency, lower abdominal pain, rectal pain, impaction, elevated blood sug Narrative Narrative: Patient is AN 83-year-old woman with history of hypertension, hyperlipidemia, hypothyroidism and type 2 diabetes. She reports that she is on insulin as well as tablets. She denies fever, chills night sweats. She denies headache, visual, ocular auditory symptoms. She denies cardiac or respiratory symptoms. She does report rectal/anal pain and attempted to disimpact herself resulting in bright red blood. She also complains of discomfort in the suprapubic area with frequency. She states her blood sugars normally are below 200. They recently been in the 300s. Prior similar symptoms: No Recent Illness/Hospitalization: No [facility] Medical History (Updated 01/16/24 @ 04:[address] 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 Microcytic anemia Nonrheumatic aortic (valve) insufficiency Other correction (current) drug therapy Paroxysmal atrial fibrillation Type 2 diabetes mellitus Home Medications bimatoprost 0.01 % eye drops 1 drp ophthalmic (eye) QHS 09/04/13 [History Last Taken 09/03/13] cholecalciferol (vitamin D3) 25 mcg (1,000 unit) capsule 1,000 unit PO DAILY 1 11/04/12 [History Last Taken Unknown] aspirin 81 mg chewable tablet 81 mg PO DAILY@0800 ##30 09/06/13 [Rx Last Taken Unknown] famotidine 40 mg tablet 40 mg PO QDAY 01/12/18 [History Last Taken Unknown] glipizide 5 mg tablet 5 mg PO BID 01/17/18 [History Last Taken Unknown] labetalol 300 mg tablet 300 mg PO BID 01/17/18 [History Last Taken Unknown] losartan 50 mg tablet 50 mg PO BID #180 tabs 01/14/21 [Rx Last Taken Unknown] levothyroxine 137 mcg tablet 137 mcg PO DAILY 12/01/21 [History Last Taken Unknown] amlodipine 5 mg tablet 5 mg PO DAILY 06/03/22 [History Last Taken Unknown] atorvastatin 20 mg tablet 20 mg PO DAILY 06/03/22 [History Last Taken Unknown] insulin detemir U-100 100 unit/mL (3 mL) subcutaneous pen 22 unit subcut QHS 06/03/22 [History Last Taken Unknown] furosemide 20 mg tablet 20 mg PO DAILY #90 tabs 01/05/23 [Rx Last Taken Unknown] amiodarone 200 mg tablet 100 mg (1/2 x 200 mg) PO QDAY #45 tabs 11/11/23 [Rx Last Taken Unknown] cephalexin 500 mg capsule 500 mg PO TID #21 CAPSULES 01/16/24 [Rx Last Taken Unknown] Allergy/AdvReac Type Severity Reaction Status Date / Time lansoprazole [From Prevacid] Allergy Itching Verified 01/16/24 01:50 lisinopril [From Zestril] Allergy Other Verified 01/16/24 01:50 sulfamethoxazole Allergy Chest Verified 01/16/24 01:50 [From Bactrim] tightness trimethoprim Allergy Other Verified 01/16/24 01:50 nifedipine [From Procardia] AdvReac Other Verified 01/16/24 01:50 rosiglitazone maleate AdvReac Other Verified 01/16/24 01:50 [From Avandia] Family History Mother Heart disease Hypertension Cancer skin Father Cancer throat Brother Heart disease Hypertension Sister Heart disease heart valve problems Surgical History History of left heart catheterization (~09/05/13) History of partial thyroidectomy History of tubal ligation Social History (Updated 01/16/24 @ 04:[address] Erasto Lafleur MD) household members: none Smoking Status: Never smoker second hand exposure: Yes alcohol intake: never caffeine: Yes Type: coffee Number of servings: 2 ROS ROS ED Constitutional Constitutional ED: Denies chills, fever(s), subjective or sweats Eyes Eyes: Denies blurry vision or change in vision Cardiovascular Cardiovascular: Denies chest pain, orthopnea, palpitations or paroxysmal nocturnal dyspnea Respiratory/Chest Respiratory/Chest: Denies cough, dyspnea, dyspnea on exertion, orthopnea or paroxysmal nocturnal dyspnea Gastrointestinal Gastrointestinal: Reports constipation and other Details: Further detail HPI narrative ; Denies abdominal pain, diarrhea, melena, nausea or vomiting Genitourinary Genitourinary ED: Reports urinary frequency; Denies dysuria or hematuria Musculoskeletal Musculoskeletal: Denies arthralgias, back pain or myalgias Integumentary Denies rash Neurologic Neurologic: Denies headache(s) or paresthesias Endocrine Endocrinology: Denies cold intolerance or heat intolerance Hematologic/Lymphatic Hematologic/Lymphatic: Reports systems reviewed and no addt'l complaints, except as documented EXAM Physical Exam Const Vital Signs: 01/16/24 01:50 01/16/24 02:02 01/16/24 03:58 Temperature 97.8 F Temperature Source Temporal Pulse Rate 60 59 L 61 Respiratory Rate 18 18 16 Blood Pressure 184/67 H 164/66 H 162/66 H Blood Pressure Mean 106 98 98 Pulse Ox 96 99 98 Oxygen Delivery Method Room Air Room Air Patient with elevated blood pressure. She is on multiple meds and states her blood pressure is normally elevated. Positive well nourished, well developed and obese General Appearance ED: well developed, NAD and pallor; Negative for cyanotic or diaphoretic Nutritional Appearance: obese HEENT Reports moist mucous membranes HEENT Narrative: Head is atraumatic and normocephalic. Ears normal. Nares patent. Posterior pharynx is normal. Eyes PERRL and EOMs intact bilaterally General Eye ED: Negative for pale conjunctiva or scleral icterus Neck no lymphadenopathy and supple Chest Wall inspection of chest normal and palpation of chest normal Resp normal respiratory effort and clear to auscultation bilaterally Cardio regular rate, regular rhythm, S1 normal heart sound, S2 normal heart sound and no murmurs GI no masses; Negative for normal to inspection, nondistended, normoactive bowel sounds, non-tender, non-distended or hepatosplenomegaly GI Narrative: Patient has evidence of prior hemorrhoids. There is no active bleeding. There is no fissures or fistulas noted. Patient is impacted. Patient was disimpacted. She had some discomfort during disimpaction. Inspection: abdominal distention Auscultation: hypoactive bowel sounds Palpation: soft and tender suprapubic; Negative for guarding, splenomegaly, mass or rebound tenderness present Back/Spine no CVA tenderness Extremity normal to inspection Extremity Narrative: Patient has chronic edema of her lower extremities. General Extremety ED: Yes edema; Negative for tenderness General Extremity: edema Neuro oriented x3 and CN's II-XII intact bilaterally Sensorium / Orientation: alert Psych mental status grossly normal Skin no rashes or lesions noted, no wounds and No skin turgor normal General Skin Exam: pallor; Negative for elasticity normal or jaundice MDM MDM MDM Narrative Medical decision making narrative: Patient is rectal pain is due to rectal impaction. This was corrected by me by disimpacting the patient. With patient having suprapubic discomfort frequency will obtain UA and this may explain her elevated blood sugars. BMP was obtained to assess renal function, BUN and creatinine as well as electrolytes. CBC to assess white count differential. History & Record Review Additional record(s) reviewed:: Prior outpatient record (Patient sees Dr. Spann for hypertension and A-fib.), Prior ED visit (Most recent ER visit was for closed head injury) and Prior labs Lab Data Attestation: I reviewed the patient's lab results. Lab results narrative: White count is normal. There is a slight shift. Creatinine is slightly evaded 1.26 with a GFR 43. Urine is consistent with infection. Urine culture was sent. Patient received first dose of cephalexin in the emergency department. Because of her elevated creatinine and GFR of 43 dose was adjusted to 500 mg 3 times daily. Labs: Laboratory Results - last 24 hr 01/16/24 01/16/24 02:05 02:14 WBC 9.5 RBC 4.15 L Hgb 12.2 Hct 39.1 MCV 94.2 MCH 29.4 MCHC 31.2 L RDW Std Deviation 47.9 H RDW Coeff of Hao 14.0 Plt Count 263 MPV 9.5 Immature Gran % (Auto) 0.600 Neut % (Auto) 76.9 H Lymph % (Auto) 11.0 L [place] % (Auto) 9.0 Eos % (Auto) 1.6 Baso % (Auto) 0.9 Absolute Neuts (auto) 7.3 Absolute Lymphs (auto) 1.04 Nucleated RBC % 0 Sodium 138 Potassium 3.9 Chloride 106 Carbon Dioxide 25.0 Anion Gap 7 BUN 27 H Creatinine 1.26 H Estim Creat Clear Calc 34.21 Est GFR (MDRD) Af Amer 52 L Est GFR (MDRD) Non-Af 43 L BUN/Creatinine Ratio 21.4 H Glucose 274 H Calcium 8.9 Urine Color Yellow Urine Clarity Sl. Cloudy Urine pH 6.0 Ur Specific [place] 1.015 Urine Protein 100 H Urine Glucose (UA) 250 H Urine Ketones Negative Urine Occult Blood 250 H Urine Nitrite Positive H Urine Bilirubin Negative Urine Urobilinogen Normal Ur Leukocyte Esterase 500 H Urine RBC 0 SEEN Urine WBC 5-10 SEEN Ur Squamous Epith Cells 0 SEEN Urine Bacteria 4+ Urine Mucus 0 SEEN Treatment and Re-Evaluation :: 1. Digital disimpaction by me 2. Treatment for cystitis and because of her hyperglycemia there is no evidence of DKA. Discharge Plan Triage Chief Complaint: GI Bleed ED Provider: Erasto Lafleur Dx/Rx/DC Orders Clinical Impression: Fecal impaction in rectum, Essential hypertension, [employer] current use of amiodarone, Hypothyroidism, Atherosclerotic heart disease of [place] coronary artery without angina pectoris, Acute cystitis, Controlled type 2 diabetes mellitus with hyperglycemia, with long-term current use of insulin Instructions: ED Fecal Impaction, Treated, ED Cystitis Female Adult Prescriptions: New cephalexin [cephalexin] 500 mg capsule 500 mg PO TID Qty: 21 0RF No Action famotidine 40 mg tablet 40 mg PO QDAY labetalol 300 mg tablet 300 mg PO BID glipizide 5 mg tablet 5 mg PO BID levothyroxine 137 mcg tablet 137 mcg PO DAILY atorvastatin 20 mg tablet 20 mg PO DAILY amlodipine 5 mg tablet 5 mg PO DAILY furosemide 20 mg tablet 20 mg PO DAILY Qty: 90 3RF cholecalciferol (vitamin D3) 1,000 UNIT capsule 1,000 unit PO DAILY Patient Comments: VITAMIN SUPPLEMENT bimatoprost 1 DROP bottle 1 drp OPHTHALMIC QHS Patient Comments: EYE DROPS aspirin 81 MG tablet,chewable 81 mg PO DAILY@0800 Qty: 30 0RF Patient Comments: blood thinner insulin detemir U-100 100 unit/mL (3 mL) insulin pen 22 unit SC QHS Patient Comments: Diabetes losartan 50 mg tablet 50 mg PO BID Qty: 180 4RF Patient Comments: bp controll bp control amiodarone 200 mg tablet 100 mg PO QDAY Qty: 45 3RF Primary Care Provider: Jared Rosenbaum Referrals: Jared Rosenbaum MD [Primary Care Provider] - 3-5 Days if not improving Disposition Disposition: Home, Self Care
[2024-01-16] MEDS: Cephalexin 250 MG Capsule 500 MG PO (04:10)
[2024-01-16 04:15] VITALS: BP 151/66; PULSE 78; RESP 16; TEMP 36.4; O2SAT 98
== END 2024-01-16 05:50 | disposition home or self-care (01) ==
PROVIDERS: Emergency Provider Emergency Medicine; PCP Family Medicine; Visit Provider Emergency Medicine
DX: K56.41 Fecal impaction (principal); E11.65 Type 2 diabetes mellitus with hyperglycemia; I48.0 Paroxysmal atrial fibrillation; Z79.4 Long term (current) use of insulin; N30.00 Acute cystitis without hematuria; I10 Essential (primary) hypertension; I25.10 Atherosclerotic heart disease of native coronary artery without angina pectoris; E78.5 Hyperlipidemia, unspecified; Z79.82 Long term (current) use of aspirin; Z79.899 Other long term (current) drug therapy; Z79.84 Long term (current) use of oral hypoglycemic drugs; E03.9 Hypothyroidism, unspecified; Z98.51 Tubal ligation status
CPT/HCPCS: 80048; 81001; 85025; 87077; 87086; 87088; 87186; 99283; A4216

== ENCOUNTER → 2025-10-30 | Outpatient (CLI) | payer MEDICARE, SELFPAY ==
[2025-10-30 13:59] LABS: AST(SGOT) 16 U/L (<=31); Alanine Aminotransfer ALT/SGPT 12 U/L (<=34); Albumin, Serum 4.1 g/dL (3.4-4.8); Alkaline Phosphatase 108 U/L (35-104); Anion Gap 11 (7-18); BUN 27 mg/dL (4-19); BUN/Creat Ratio 16.8 RATIO (10-20); Calcium,Total 9.6 mg/dL (7.6-11.0); Carbon Dioxide 25.1 mmol/L (20.0-29.0); Chloride 103 mmol/L (96-106); Globulin 2.7 g/dL (2.2-4.2); Glucose 99 mg/dL (70-99); Potassium 4.5 mmol/L (3.5-5.1)
== END | disposition home or self-care (01) ==
PROVIDERS: PCP Family Medicine; Visit Provider Student in an Organized Health Care Education/Training Program
DX: I10 Essential (primary) hypertension (principal); I48.0 Paroxysmal atrial fibrillation; I35.1 Nonrheumatic aortic (valve) insufficiency; Z79.899 Other long term (current) drug therapy
CPT/HCPCS: 36415; 80053; 84443